=== PATIENT | male | born 1985 | race Caucasian/White ===

== ENCOUNTER 2018-04-11 18:34 | Emergency (ER) | payer OTHER ==
[2018-04-11 19:05] VITALS: TEMP 98.7; O2SAT 100
[2018-04-11] MEDS ORDERED: Sodium Chloride 0.9% 1,000 ML IV STA (19:57)
--- NOTE | 2018-04-11 19:58 | ED PDOC ---
Arrival/HPI - General Chief Complaint: Syncope Time Seen by Provider: 04/11/18 19:27 Historian: Patient - History of Present Illness Narrative History of Present Illness (Text): 04/11/18 20:29 33 year old male, with no significant past medical history, presents to the emergency department with nausea and dizziness. Patient states he [place] on his [place] [facility] [place] Patient informs being in recovery for about 4 hours, where he was given a nerve block and a muffin. Patient informs going home at about 18:00 and trying to eat 2 spoonfuls of oats, when he became dizzy and nauseous. Patient states he did not pass out, lose consciousness, or sustain any head trauma. Patient denies any vomiting, fevers, chills, headache, chest pain, shortness of breath, cough, or any other complaint. Time/Duration: Prior to Arrival Symptom Onset: Gradual Activities at Onset: Light Context: Work Past Medical History - Provider Review Nursing Documentation Reviewed: Yes - Infectious Disease Hx of Infectious Diseases: None - Cardiac Hx Cardiac Disorders: No - Endocrine/Metabolic Hx Hypothyroidism: Yes - Psychiatric Hx Substance Use: No - Surgical History Hx Orthopedic Surgery: Yes - Anesthesia Hx Anesthesia Reactions: No Family/Social History - Physician Review Nursing Documentation Reviewed: Yes Family/Social History: No Known Family HX Smoking Status: Unknown If Ever Smoked Hx Alcohol Use: No Hx Substance Use: No Allergies/Home Meds Allergies/Adverse Reactions: Allergies No Known Allergies Allergy (Verified 04/11/18 19:05) Home Medications: Home Meds Medication Instructions Recorded Confirmed Doxycycline Hyclate [Doryx] 100 mg PO DAILY 04/11/18 04/11/18 Review of Systems - Physician Review All systems were reviewed & negative as marked: Yes - Review of Systems Constitutional: absent: Fevers, Night Sweats Respiratory: absent: SOB, Cough Cardiovascular: absent: Chest Pain Gastrointestinal: Nausea. absent: Vomiting Neurological: Dizziness. absent: Headache Physical Exam Vital Signs Reviewed: Yes Vital Signs Temp Pulse Resp BP Pulse Ox 04/11/18 18:58 98.7 F 82 20 121/88 100 Temperature: Afebrile Blood Pressure: Normal Pulse: Regular Respiratory Rate: Normal Appearance: Positive for: Well-Appearing, Non-Toxic, Comfortable Pain Distress: None Mental Status: Positive for: Alert and Oriented X 3 - Systems Exam Head: Present: Atraumatic, Normocephalic Pupils: Present: PERRL Extroacular Muscles: Present: EOMI Conjunctiva: Present: Normal Mouth: Present: Dry. No: Moist Mucous Membranes Neck: Present: Normal Range of Motion Respiratory/Chest: Present: Clear to Auscultation, Good Air Exchange. No: Respiratory Distress, Accessory Muscle Use Cardiovascular: Present: Regular Rate and Rhythm, Normal S1, S2. No: Murmurs Abdomen: No: Tenderness, Distention, Peritoneal Signs Back: Present: Normal Inspection Upper Extremity: Present: Normal Inspection (LUE is in a stabilizer; surgical site dressing clean, dry, and intact). No: Normal ROM Lower Extremity: Present: Normal Inspection. No: Edema Neurological: Present: GCS=15, CN II-XII Intact, Speech Normal Skin: Present: Warm, Dry, Normal Color. No: Rashes Psychiatric: Present: Alert, Oriented x 3, Normal Insight, Normal Concentration Medical Decision Making ED Course and Treatment: 04/11/18 20:42 Impression: 33 year old male presents with dizziness and nausea Plan: -- CMP -- CBC -- IV fluids -- Reassess and disposition Prior Visits: Notes and results from previous visits were reviewed. Progress Notes: 04/11/18 21:20 Upon reevaluation, patient states he is feeling much better and is requesting food. 04/11/18 22:20 Patient appears comfortable and is feeling much better. Patient tolerated his food as well as his prescribed pain medication. Patient states he would like to go home - EKG Interpretation EKG Interpretation (Text): 04/11/18 21:10 Normal sinus rhythm @ 70bpm No ST or T wave changes Normal EKG Interpreted by ED Physician: Yes Type: 12 lead EKG Comparison: No previous EKG avail. - Scribe Statement The provider has reviewed the documentation as recorded by the Ava Rollins Provider Scribe Attestation: All medical record entries made by the [employer] were at my direction and personally dictated by me. I have reviewed the chart and agree that the record accurately reflects my personal performance of the history, physical exam, medical decision making, and the department course for this patient. I have also personally directed, reviewed, and agree with the discharge instructions and disposition. Disposition/Present on Arrival - Present on Arrival Any Indicators Present on Arrival: No History of DVT/PE: No History of Uncontrolled Diabetes: No Urinary Catheter: No History of Decub. Ulcer: No History Surgical Site Infection Following: None - Disposition Have Diagnosis and Disposition been Completed?: Yes Diagnosis: Dizziness, Dehydration Disposition: HOME/ ROUTINE Disposition Time: 22:22 Patient Plan: Discharge Condition: IMPROVED Discharge Instructions (ExitCare): Dizziness, Nonvertigo, (DC), Dehydration, Adult (DC) Additional Instructions: [place], thank you for letting us take care of you today. Your provider was Piedad Bonds MD and you were treated for DIZZINESS. The emergency medical care you received today was directed at your acute symptoms. If you were prescribed any medication, please fill it and take as directed. It may take several days for your symptoms to resolve. Return to the Emergency Department if your symptoms worsen, do not improve, or if you have any other problems. Please contact your doctor in 1-2 days. Bring any paperwork you were given at discharge with you along with any medications you are taking to your follow up visit. Our treatment cannot replace ongoing medical care by a primary care provider outside of the emergency department. Thank you for allowing the [facility] team to be part of your care today. Forms: [employer] ([place])
[2018-04-11 20:50] LABS: EOS % 0.1 % (1.5-5.0); HEMOGLOBIN 14.2 g/dL (14.0-18.0); LYMPH # 0.4 (1.2-3.4); LYMPH % 4.7 % (22.0-35.0); MEAN CELL VOLUME 86.9 fl (80.0-105.0); MEAN CORPUSCULAR HGB CONC 33.4 g/dl (31.0-37.0); MEAN PLATELET VOLUME 10.5 fl (7.0-11.0); MONO # 0.5 (0.1-0.6); MONO % 5.4 % (1.0-6.0); PLATELET COUNT 213 10^3/uL (120.0-450.0); RBC 4.89 10^6/uL (3.5-6.1); RED CELL DISTRIBUTION WIDTH 12.6 % (11.5-14.5); WHITE BLOOD COUNT 8.5 10^3/uL (4.5-11.0)
[2018-04-11 20:59] LABS: ALB/GLOB RATIO 1.6 (1.1-1.8); ALBUMIN 4.7 g/dL (3.0-4.8); ALT/SGPT 27 U/L (7-56); AST/SGOT 34 U/L (17-59); BLOOD UREA NITROGEN 9 mg/dL (7-21); GFR NON-AFRICAN AMERICAN > 60
[2018-04-11 21:08] LABS: LYMPHOCYTE 4 % (22.0-35.0); MONOCYTE 6 % (1.0-6.0); NEUTROPHIL 90 % (50.0-70.0)
[2018-04-11 21:09] LABS: PLATELET ESTIMATE NORMAL (NORMAL)
[2018-04-11 21:23] VITALS: BP 123/78; PULSE 92; RESP 18
[2018-04-11 21:42] LABS: URINE APPEARANCE CLEAR (CLEAR); URINE BILIRUBIN NEGATIVE (NEGATIVE); URINE BLOOD NEGATIVE (NEGATIVE); URINE COLOR YELLOW (YELLOW); URINE GLUCOSE (UA) NEGATIVE (NEGATIVE); URINE LEUKOCYTE ESTERASE NEGATIVE Leu/uL (NEGATIVE); URINE PROTEIN NEGATIVE mg/dL (<30 mg/dL); URINE UROBILINOGEN 0.2 E.U./dL (<1 E.U./dL)
--- NOTE | 2018-04-12 16:12 | CARD ---
APPROVED REPORT Date of service: 04/11/2018 EKG Measurement Heart [id number] MA 130P-3 [id number] <Conclusion> Normal sinus rhythm Normal ECG
== END 2018-04-11 22:44 | disposition home or self-care (01) ==
LOC: ED 18:34
DX: R42 Dizziness and giddiness (principal); E86.0 Dehydration
CPT/HCPCS: 80053; 81003; 82948; 85025; 93005; 96360; 99285; J7030